=== PATIENT | male | born 2000 | race Caucasian/White ===

== ENCOUNTER 2024-12-18 23:16 | Inpatient (IN) | payer OTHER ==
[2024-12-18] MEDS ORDERED: ACETAMINOPHEN TAB 325 MG TAB PO PRN (23:43)
[2024-12-18] MEDS ORDERED: MAG HYDROX/AL HYDROX/SIMETH 355 ML BOTTLE PO PRN (23:43)
[2024-12-18] MEDS ORDERED: MAGNESIUM HYDROXIDE 2,400 MG/30 ML CUP PO PRN (23:43)
[2024-12-18] MEDS ORDERED: hydrOXYzine HCL 50 MG/ML 1 ML VIAL IM PRN (23:43)
--- NOTE | 2024-12-19 11:38 | P.HP ---
Psychiatric H&P - . H&P Date: 12/19/24 History & Physical: Allergies Allergy/AdvReac Type Severity Reaction Status Date / Time No Known Allergies Allergy Verified 12/18/24 23:42 Vital Signs Temp 98.6 F 12/19/24 06:51 Pulse 82 12/19/24 06:51 Resp 18 12/19/24 06:51 BP 137/83 12/19/24 06:51 Pulse Ox 99 12/19/24 06:51 FiO2 Intake & Output 12/18/24 12/19/24 12/19/24 18:59 06:59 18:59 Weight 70 kg Dictation was produced using [employer] dictation software. Please excuse any grammatical, word or spelling errors. IDENTIFYING DATA: Patient is a 24 years old male with past psychiatric history of bipolar disorder presenting from [facility] HPI: Per chart review, the patient came in as a transfer from [facility]. Per petition " the patient found running down the [address] without short, had no idea where he is, reported that he is talking to family through his mind, has a history of mental illness. Recently spent a week in [facility]. the patient presented to the ED for mood disorder with delusions, has poor insight and judgment." Per clinical certification "Patient was recently diagnosed with bipolar disorder, and has not been taking any medication for 1 week, patient was found wandering on the side of the street, [facility], stating he wanted to connect with his dad." Upon evaluation in the unit the patient states that he had a stress episode for the last few months, and states that he does not want to talk about it, states that he was at a facility about a week or 2 ago, and stayed for more than 7 days, pt he was ripped out of his life, and he was jumping into different topics. States that issues started after he opened up to his family, told them that he has too many knifes and unloaded pistol and shot gun, his family were concerned about him having those issues, states that he decided to leave the family house, went for a drive, and he felt hot, so he decide to walk on the freeway. 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 Appetite is okay, reported that he lost some weight. Patient admitted to flight of ideas, racing thoughts and increased in goal directed behavior, and poor sleep states that he was smoking too much weed every night, and states that he can finish the vape cartridge in one day. States that he just want to go back home and want to smoke again. He denied any current AVH, or paranoia. Patient admits to using cannabis daily too much, used to drink alcohol however nothing recently. Vape daily. Denied any other substance use recently. Reported that he tried mushroom a year ago. Per report there was some smell of a chemical in his car which patient was not aware of and he denied having any chemicals. PAST PSYCHIATRIC HISTORY: - Inpatient Hospitalizations: Per report patient was hospitalized at [facility] 1 week ago - Outpatient Care: none currently - Current Psychotropics: none currently, states that he just wants weed - Prior Psychotropics/Therapy: states Depakote and Seroquel sounds familiar, however he he states that "I am not going to take any mood stabilizer or antipsychotic" - Prior Psychiatric dx: bipolar disorder PMH: as per ER note ALLERGIES: as per EMR CHEMICAL DEPENDENCY HISTORY: as per HPI FAMILY PSYCHIATRIC/SUBSTANCE USE HISTORY: maternal grandmother has bipolar disorder, little sister has BPD SOCIAL HISTORY: Patient was born and raised in [place], he is single, has one son, 1 yo, 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 Denied any legal history. MENTAL STATUS EXAM: General Appearance: Patient appears to be stated age is alert, directable, and attempts to cooperate. Patient appears to have fair hygiene and grooming. Behavior: Patient is seated without any agitated behavior, however seems restless, stood up few times Speech: Patient's speech is fluent and nonpressured. Mood/Affect: Patient reports their mood is anxious, affect is congruent and constricted. Suicidality/Homicidality: Patient denies having any homicidal ideation intent or plan. Denies any suicidal ideations intent or plan Perceptions: Patient denies any visual hallucinations and denies any auditory hallucinations Though content/process: Illogical and nonsensical, paranoid at times, took time to read the medication consent form and decided not to sign it Memory and concentration: AOX3, grossly intact for the purposes of this session. Can spell "WORLD" backwards Judgment and insight: poor STRENGTHS/WEAKNESSES: strength is that patient is resilient. Weakness is that patient has poor judgment and is impulsive INTELLECT: average IMPRESSIONS: Patient is a 24 years old male with past psychiatric history of bipolar disorder presenting from [facility]. The patient has been having bizarre behavior, was found walking down the [address] without a shirt, he was recently discharged from [facility] about a week ago, has not been compliant with his medication. He lacks insight into his current mental illness, refused to try any mood stabilizer or antipsychotic medication. He has been smoking cannabis heavily lately and reported he just want to go home so he can smoke again. We discussed starting Abilify and trazodone to help with sleep as needed however patient refused to sign medication consent. Patient was encouraged to try the medication. Psychoeducation was provided, risk, benefit and side effect discussed. Lateral will be helpful. Bipolar disorder, current episode mixed, rule out with psychotic features Rule out due to heavy cannabis use Anxiety disorder, unspecified Cannabis use disorder, severe PLAN: -Patient is admitted under involuntary status to [facility] for stabilization of psychiatric symptoms and safety. Patient has not signed adult voluntary form and medication consent. A second certification was completed and along with petition will be filed for court. -Medications : Start Abilify 2 mg p.o. at bedtime Start trazodone 50 mg p.o. as needed at bedtime -Zyprexa, and hydroxyzine PRN for agitation/aggression -Collateral will be needed from the patient last hospitalization and from his parents -Patient was counselled on substance abuse and desired to cut back on use, however he does not see his cannabis use is a problem -Patient was informed of the risks, benefits and side effects of the medication and patient verbally consented to taking the medications. Patient refused to sign med consent form -Internal Medicine consult to perform medical evaluation and physical. -NRT - nicotine patch -SW on board for discharge planning. Encourage patient to participate in groups to work on coping skills. Will await deferral and court date. Collateral will be helpful 12/19/24 08:14 12/19/24 10:34 12/19/24 11:24
[2024-12-19 11:42] LABS: Basophils # (A) 0.03 10*3/uL (0.00-0.10); Basophils % (A) 0.3 %; Eosinophils # (A) 0.04 10*3/uL (0.04-0.35); Eosinophils % (A) 0.5 %; HCT 42.2 % (39.6-50.0); HGB 14.9 g/dL (13.0-17.0); Lymphocytes # (A) 1.83 10*3/uL (0.90-5.00); Lymphocytes % (A) 21.3 %; MCHC 35.3 g/dL (32.0-37.0); MCV 90.8 fL (80.0-97.0); Mean Platelet Volume 8.7 fL (9.5-12.2); Monocytes # (A) 0.75 10*3/uL (0.20-1.00); Monocytes % (A) 8.7 %; Neutrophils # (A) 5.94 10*3/uL (1.80-7.70); Platelet Count 289 10*3/uL (140-440); RBC 4.65 10*6/uL (4.40-5.60); RDW 11.8 % (11.5-14.5); WBC 8.61 10*3/uL (4.50-10.00)
[2024-12-19 11:57] LABS: ALT 17 U/L (4-49); AST 22 U/L (17-59); African American GFR (CKD) >90 (>60 ml/min/1.73 sqM); Albumin 4.6 g/dL (3.5-5.0); Alkaline Phosphatase 39 U/L (38-126); Anion Gap 9 mmol/L; Blood Urea Nitrogen 12 mg/dL (9-20); Calcium 9.3 mg/dL (8.4-10.2); Carbon Dioxide 25 mmol/L (22-30); Chloride 104 mmol/L (98-107); Glucose 101 mg/dL (74-99); Non-African American GFR(CKD) >90 (>60 ml/min/1.73 sqM); Potassium 4.3 mmol/L (3.5-5.1); Sodium 138 mmol/L (137-145); Total Bilirubin 0.5 mg/dL (0.2-1.3); Total Protein 7.4 g/dL (6.3-8.2)
[2024-12-19] MEDS: NICOTINE 14MG/24HR PATCH TRANSDERM SCH (12:34)
[2024-12-19] MEDS: ARIPiprazole 2 MG TAB PO SCH (22:22)
[2024-12-20] MEDS: DOCUSATE 100 MG CAP PO SCH (00:22)
[2024-12-20 02:17] LABS: Chol/HDL Ratio 3.77 Ratio
[2024-12-20] MEDS: OLANZapine 10 MG VIAL IM PRN (02:58)
[2024-12-20] MEDS: hydrOXYzine pamoate 25 MG CAP PO PRN (10:19)
[2024-12-20] MEDS: OLANZapine 5 MG TAB PO PRN (10:20)
--- NOTE | 2024-12-20 13:34 | P.PN ---
Progress Note - Text Progress Note Date: 12/20/24 Dictation was produced using [employer] dictation software. Please excuse any grammatical, word or spelling errors. Interval history: Patient was seen in the hallway and was directable and agreeable to speak with the junior underwriter in the hallway privately for psychiatric follow-up. The patient was in the hallway, arguing with staff, he has been very argumentative, demanding, knocking on the junior underwriter door multiple times since early in the morning, the junior underwriter redirected the patient multiple times, he is still fixated on discharge, leaving the hospital, requested to call 911. It was very hard to redirect the patient. He was hyperverbal, loud in the hallway, agitated and checking doors. Patient was encouraged to try as needed Vistaril and Zyprexa, he continued to refuse medication. The patient requested that the junior underwriter has to talk with him in front of the camera, states that he wanted to leave the hospital since he does not belong here. He states that " his dad did that to his mind and he is the one makes him hearing voices." States that he is planning to go [place] and does not want to interact with his father anymore. He denied any current suicidal, self-harm or homicidal thoughts or behavior. Denied any auditory or visual hallucination however patient seems to be very preoccupied. He is argumentative, demanding, disorganized. He can be agitated easily and having bizarre behavior. He has been refusing all of his psychotropic medication. He slept 3 hours overnight. Is been eating his meals. Per staff report the patient has been agitated and upset, he refused all of his psychotropic medication, the patient was caught in the female room, she had her shirt off, standing next to the bed, and patient was standing next to the window, patient was redirected as well as a female peer. Patient verbally acknowledge that he will keep his boundaries MENTAL STATUS EXAM: General Appearance: Patient appears to be stated age is alert, directable, and attempts to cooperate. Patient appears to have fair hygiene and grooming. Behavior: Patient is standing and has agitated behavior, argumentative, demanding, restless, he hold his fast together multiple time Speech: Patient's speech is fast in rate, pressured at time Mood/Affect: Patient reports their mood is anxious, affect is congruent and constricted. Suicidality/Homicidality: Patient denies having any homicidal ideation intent or plan. Denies any suicidal ideations intent or plan Perceptions: Patient denies any visual hallucinations and denies any auditory hallucinations Though content/process: Illogical and nonsensical, disorganized, paranoid at times, he is fixated on discharge. He lacks insight into his mental illness Memory and concentration: AOX3, grossly intact for the purposes of this session. Can spell "WORLD" backwards Judgment and insight: poor IMPRESSIONS: Bipolar disorder, current episode mixed, rule out with psychotic features Rule out due to heavy cannabis use Anxiety disorder, unspecified Cannabis use disorder, severe PLAN: -Patient is admitted under involuntary status to [facility]HU for stabilization of psychiatric symptoms and safety. Patient has not signed adult voluntary form and medication consent. A second certification was completed and along with petition will be filed for court. -Medications : (Has been refusing his psychotropic medication) Continue Abilify 2 mg p.o. at bedtime Continue trazodone 50 mg p.o. as needed at bedtime -Patient will have a room without a roommate to avoid any altercation -Zyprexa, and hydroxyzine PRN for agitation/aggression -Collateral will be needed from the patient last hospitalization and from his parents -Patient was counselled on substance abuse and desired to cut back on use, however he does not see his cannabis use is a problem -Patient was informed of the risks, benefits and side effects of the medication. Patient refused to sign med consent form - on board for discharge planning. Encourage patient to participate in groups to work on coping skills. Will await deferral and court date. Collateral will be helpful
[2024-12-20] MEDS: traZODone HCL 50 MG TAB PO PRN (21:12)
--- NOTE | 2024-12-21 02:05 | P.MDCNMH ---
History of Present Illness H&P Date: 12/20/24 24-year-old male no significant past medical history Patient admitted for mental health evaluation The patient currently denies any medical concerns , denies any fever, chills, cough, sore throat, chest pain , trouble breathing , nausea , vomiting, abd pain , changes in urinary or bowel habits. Patient denies heavy alcohol, admits to smoking and marijuana review of systems Pertinent positives as noted in HPI. All other systems were reviewed and are negative on exam Constitutional: No acute distress Eyes: Anicteric sclerae, moist conjunctiva, Pupils equal round reactive to light Lungs: Clear to auscultation Clear to percussion Normal respiratory effort, no accessory muscle use Cardiovascular: Heart regular in rate and rhythm, No murmurs, gallops, or rubs No peripheral edema Abdominal: Soft Nontender, no guarding, rebound or rigidity Abdomen moving with respiration Normoactive bowel sounds Extremities: No clubbing Pedal pulses intact and symmetrical Radial pulses intact and symmetrical No calf tenderness Psychiatric: Alert and oriented to person, place and time Neuro Muscles Strength 5/5 in all 4 extremities Sensation to light touch grossly present throughout Assessment and plan Acute psychosis and paranoid ideation Management per psych Blood work reviewed showing white count of 8 hemoglobin 14 BUN 12 creatinine 0.8 sodium 138 potassium 4.3 all of which unremarkable at this time Thank you for allowing us to participate in the care of this pleasant patient. Do not hesitate to contact us with questions. Someone can be reached from the [facility] hospitalist group all hours of the day at [phone] or via [employer]. Medications and Allergies Home Medications Medication Instructions Recorded Confirmed Type Divalproex ER [Depakote ER] 500 mg PO BID 12/19/24 12/19/24 History Paliperidone [Invega] 3 mg PO HS 12/19/24 12/19/24 History Allergies Allergy/AdvReac Type Severity Reaction Status Date / Time No Known Allergies Allergy Verified 12/19/24 11:31 Physical Exam Vitals: Vital Signs Temp Pulse Resp BP Pulse Ox 12/20/24 21:00 98.0 F 70 18 154/92 99 12/20/24 09:00 98.3 F 86 18 112/76 98 12/20/24 06:14 85 16 119/60 100 Intake and Output 12/20/24 12/20/24 12/21/24 14:59 22:59 06:59 Other: Weight 72.2 kg Cranial Nerve Examination - Cranial Nerves Cranial Nerve II- Optic: Intact Cranial Nerve III- Oculomotor: Intact Cranial Nerve IV- Trochlear: Intact Cranial Nerve V- Trigeminal: Intact Cranial Nerve - Abducens: Intact Cranial Nerve VII- Facial: Intact Cranial Nerve VIII- Auditory: Intact Cranial Nerve IX- Glossopharyngeal: Intact Cranial Nerve X- Vagus: Intact Cranial Nerve XI- Accessory: Intact Cranial Nerve XII- Hypoglossal: Intact Results CBC & Chem 7: 12/19/24 11:16 12/19/24 11:16 Labs: Abnormal Lab Results - Last 24 Hours (Table) 12/19/24 Range/Units 11:16 HDL Cholesterol 37.40 L (40.00-60.00) mg/dL
[2024-12-21] MEDS: haloperidoL 5 MG TAB PO STA (02:09)
[2024-12-21] MEDS ORDERED: OLANZapine 10 MG VIAL IM PRN (13:44)
[2024-12-21] MEDS ORDERED: hydrOXYzine HCL 50 MG/ML 1 ML VIAL IM PRN (13:44)
--- NOTE | 2024-12-21 13:49 | P.PN ---
Progress Note - Text Progress Note Date: 12/21/24 Interval History: Patient was seen wandering the hallways and was directable and agreeable to sp vernell with keno writer/runner in the hart, refusing to speak in his room. Patient displayed restlessness, disorganization in his behaviors and thoughts, stated that it is a sign that he is admitted to this hospital as he has a brother nearby in [place] and that his son is up north. There is an order for patient to stay in the South hallway given his frequent roaming into other patient's room. Patient states this is due to him being confused but he was agreeable with staying on this side of the unit. He expressed no concerns, states he is sleeping better despite staff noted him to sleep for only 2 hours overnight, seen pacing the halls and requiring as needed medications. He did display paranoid delusions, stating that there are cameras hidden in the diez on the unit. He states there is a house in [place] that he is trying to look at, states he has been hearing his father's voice. At this time patient denies any suicidal or homicidal ideations, intent or plan. Patient denies any visual hallucinations. Patient denies any side effects from the medications and has been compliant with meds. Mental Status Exam: General Appearance: Patient appears to be stated age is alert, directable, and c ooperative. He is disheveled with poor hygiene and grooming Behavior: There appears to be psychomotor restlessness Speech: Patient's speech is fluent and nonpressured. Mood/Affect: Mood is improving mildly, affect is congruent and constricted. Suicidality/Homicidality: Patient denies having any suicidal or homicidal ideation intent or plan. Perceptions: Patient denies any visual hallucinations however does report auditory hallucinations Though content/process: There is evidence of disorganization in thoughts and behaviors, paranoid delusions Memory and concentration: AOX3, grossly intact for the purposes of this session Judgment and insight: Poor Assessment Bipolar I disorder, current episode mixed with psychotic features Cannabis use disorder, severe Anxiety, unspecified Plan: -Patient continues to meet criteria for inpatient psychiatric admission for symptom stabilization and safety. Patient has not signed adult voluntary form and medication consent and was placed in patient's chart. -Medications: Increase Abilify to 10 mg daily for bipolar disorder, schedule trazodone 50 mg at bedtime for insomnia -When necessary Zyprexa and Hydroxyzine for agitation/aggression. -Labs: Grossly WNL -SW on board for discharge planning. Encouraged the patient to participate in milieu. Currently awaiting deferral with staff attorney and court date.
[2024-12-21] MEDS: ARIPiprazole 2 MG TAB PO SCH (15:16)
[2024-12-21] MEDS: OLANZapine 5 MG TAB PO PRN (17:37)
[2024-12-21] MEDS: NICOTINE 14MG/24HR PATCH TRANSDERM SCH (18:36)
[2024-12-22] MEDS: traZODone HCL 50 MG TAB PO SCH (00:42)
[2024-12-22] MEDS: hydrOXYzine pamoate 25 MG CAP PO PRN (00:42)
--- NOTE | 2024-12-22 12:03 | P.PN ---
Progress Note - Text Progress Note Date: 12/22/24 Interval History: Patient was seen wandering the hallways and was directable and agreeable to sp eak with adjusto writer operator in the hart. Patient was agreeable with uplifting the hart restrictions as long as he does not wander into other patients rooms to which he agreed. He states not taking the Abilify yesterday because it was not given to him he was unable to leave the hart. He did take the Abilify this morning. He continues to display disorganization, stating that appear on the unit who is female reminds him of his dad physically. He continues to display paranoia, feeling as though others are after him. He did not sleep well last night. At this time patient denies any suicidal or homicidal ideations, intent or plan. Patient denies any auditory, visual hallucinations. Patient denies any side effects from the medications. Mental Status Exam: General Appearance: Patient appears to be stated age is alert, directable, and cooperative. He has poor grooming and hygiene Behavior: Patient is calmly standing without any agitated behavior. Speech: Patient's speech is fluent and nonpressured. Mood/Affect: Mood is improving mildly, affect is congruent and constricted. Suicidality/Homicidality: Patient denies having any suicidal or homicidal ideation intent or plan. Perceptions: Patient denies any visual hallucinations and denies any auditory hallucinations Though content/process: There is evidence of paranoia, disorganization in thoughts Memory and concentration: AOX3, grossly intact for the purposes of this session Judgment and insight: Improving mildly Assessment Bipolar 1 disorder, current episode mixed with psychotic features Cannabis use disorder, severe Anxiety, unspecified Nicotine dependence Plan: -Patient continues to meet criteria for inpatient psychiatric admission for symptom stabilization and safety. Patient has not signed adult voluntary form and medication consent and was placed in patient's chart. -Medications: Continue Abilify 10 mg daily for bipolar disorder (encouraged patient to take this medication), increase trazodone to 100 mg at bedtime for i nsomnia -When necessary Zyprexa and hydroxyzine for agitation/aggression. -Labs: Grossly WNL -NRT - nicotine patch -SW on board for discharge planning. Encouraged the patient to participate in milieu. Currently awaiting deferral with corporate associate attorney and court date.
[2024-12-22] MEDS: NICOTINE GUM (POLACRILEX) 2 MG GUM BUCCAL PRN (13:52)
[2024-12-22] MEDS: traZODone HCL 100 MG TAB PO SCH (20:20)
--- NOTE | 2024-12-23 14:01 | P.PN ---
Progress Note - Text Progress Note Date: 12/23/24 Interval History: Patient was seen wandering the hallways and was directable and agreeable to sp eak with functional tester typewriters in the hart. Patient displayed bizarre behaviors as evidenced by him saying that he vomited his meds so that he is able to speak to me due to him thinking they were sleep agents. Patient later then states that he was having nausea from the medications that caused him to vomit. Patient was agreeable with trying a different medication. Patient appears to have connected with one of his peers on the unit who kept trying to intervene on the conversation between functional tester typewriters and patient, patient stating that this other peer is his guardian and she has his best interest at heart. Patient feels as though him being here is not infringement on his rights and that he should be discharged however the involuntary process was discussed with patient which includes him speaking to a wetlands conservation laborer to possibly sign a deferral and if not then the court will likely be next week. Patient's peer kept intervening stating that this was not right and that patient should have the option to sign himself in. Patient himself continues to display paranoia, distrustful at functional tester typewriters when writing down notes and not feeling safe here on the unit. At this time patient denies any suicidal or homicidal ideations, intent or plan. Patient denies any auditory, visual hallucinations. Mental Status Exam: General Appearance: Patient appears to be stated age is alert, directable, and cooperative. He has poor grooming and hygiene Behavior: Patient is calmly seated without any agitated behavior. Speech: Patient's speech is fluent and nonpressured. Mood/Affect: Mood is improving mildly, affect is congruent and constricted. Suicidality/Homicidality: Patient denies having any suicidal or homicidal ideation intent or plan. Perceptions: Patient denies any visual hallucinations and denies any auditory hallucinations Though content/process: There is evidence of paranoia, disorganization and bizarre behaviors. Memory and concentration: AOX3, grossly intact for the purposes of this session Judgment and insight: Improving mildly Assessment Bipolar 1 disorder, current episode mixed with psychotic features Cannabis use disorder, severe Anxiety, unspecified Nicotine dependence Plan: -Patient continues to meet criteria for inpatient psychiatric admission for symptom stabilization and safety. Patient has not signed adult voluntary form and medication consent and was placed in patient's chart. -Medications: Discontinue Abilify and start Risperdal 1 mg M-Tab at bedtime for psychosis, discontinue trazodone start Restoril 7.5 mg at bedtime for insomnia, start melatonin 10 mg at bedtime for insomnia -When necessary Zyprexa and hydroxyzine for agitation/aggression. -Labs: Grossly WNL -NRT - nicotine patch and gum as needed -SW on board for discharge planning. Encouraged the patient to participate in milieu. Currently awaiting deferral with ip attorney and court date.
[2024-12-23] MEDS: IBUPROFEN 600 MG TAB PO PRN (15:04)
[2024-12-23] MEDS: risperiDONE ODT 1 MG TAB PO SCH (20:29)
[2024-12-23] MEDS: TEMAZEPAM 7.5 MG CAP PO SCH (20:29)
[2024-12-23] MEDS: MELATONIN 5 MG TABLET PO SCH (20:29)
[2024-12-23] MEDS ORDERED: risperiDONE 1 MG TAB PO SCH (21:00)
[2024-12-23] MEDS ORDERED: RISPERIDONE PO SCH (21:00)
[2024-12-24] MEDS ORDERED: RISPERIDONE PO SCH (09:00)
--- NOTE | 2024-12-24 11:28 | P.PN ---
Progress Note - Text Progress Note Date: 12/24/24 Interval History: Patient was seen in the [facility] and was directable and agreeable to speak with justowriter operator in his room. Patient continues to exhibit paranoia with disorganization in his thoughts, expressing a microchip being in the wall in his room. Patient states that there are cameras here in his room and that we should use these cameras during the interview for court despite no cameras being present in the room. He expressed multiple complaints including the door stopper not stopping the door from slamming against the wall, not having a fan on at night, or outdoor recreational activities here, requesting a transfer to [facility]. Patient was fixated on being discharged so that he can see his son who is [place] with family. The legal process was discussed thoroughly with the patient however he continued to exhibit confusion regarding deferral versus court. He displays poor insight stating that he does not need medications and his diagnosis and treatment regimen was discussed in detail. At this time patient denies any suicidal or homicidal ideations, intent or plan. Patient denies any auditory, visual hallucinations. Patient reports sedation but has been compliant with meds. Mental Status Exam: General Appearance: Patient appears to be stated age is alert, directable, and cooperative. He has fair grooming and hygiene Behavior: Patient is calmly seated without any agitated behavior. Speech: Patient's speech is fluent and nonpressured. Mood/Affect: Mood is improving mildly, affect is congruent and constricted. Suicidality/Homicidality: Patient denies having any suicidal or homicidal ideation intent or plan. Perceptions: Patient denies any visual hallucinations and denies any auditory hallucinations Though content/process: There is evidence of paranoid delusions, disorganization and bizarre behaviors Memory and concentration: AOX3, grossly intact for the purposes of this session Judgment and insight: Improving mildly Assessment Bipolar 1 disorder, current episode mixed with psychotic features Cannabis use disorder, severe Anxiety, unspecified Nicotine dependence Plan: -Patient continues to meet criteria for inpatient psychiatric admission for symptom stabilization and safety. Patient has not signed adult voluntary form and medication consent and was placed in patient's chart. -Medications: Increase Risperdal M-Tab to 2 mg at bedtime for psychosis, increase Restoril to 15 mg at bedtime for insomnia, continue melatonin 10 mg at bedtime for insomnia -When necessary Zyprexa and hydroxyzine for agitation/aggression. -Labs: Grossly WNL -NRT - nicotine patch -SW on board for discharge planning. Encouraged the patient to participate in milieu. Currently awaiting deferral with corporate attorney and court date.
[2024-12-24] MEDS: TEMAZEPAM 15 MG CAP PO SCH (20:46)
[2024-12-24] MEDS: risperiDONE ODT 2 MG TAB PO SCH (20:46)
--- NOTE | 2024-12-25 12:58 | P.PN ---
Progress Note - Text Progress Note Date: 12/25/24 Interval History: Patient was seen wandering the hallways and was directable and agreeable to sp vernell with mortgage or loan underwriter in the office. Patient appeared more slowed, calm than previous encounter. He did not defer yesterday, stated that he needed to think about it however he did request to defer today. Staff documented 2 hours of sleep overnight however patient himself states that he has been sleeping more however is up pacing at times throughout the night. He reports some lingering sedation during the day however is adherent with his medications. Patient is disorganized in his thoughts however does appear less confused than yesterday. He denies paranoia, no longer feeling as though cameras are in the room listening in on him. He was fixated on discharge so that he can be with his son. At this time patient denies any suicidal or homicidal ideations, intent or plan. Patient denies any auditory, visual hallucinations and denies any paranoia. Patient has been compliant with meds. Mental Status Exam: General Appearance: Patient appears to be stated age is alert, directable, and cooperative. Behavior: Patient is calmly seated without any agitated behavior. Less irritable than yesterday Speech: Patient's speech is fluent and nonpressured. Mood/Affect: Mood is improving mildly, affect is congruent and constricted. Suicidality/Homicidality: Patient denies having any suicidal or homicidal ideation intent or plan. Perceptions: Patient denies any visual hallucinations and denies any auditory hallucinations Though content/process: There is evidence of disorganization in thoughts, paranoid delusions have lessened Memory and concentration: AOX3, grossly intact for the purposes of this session Judgment and insight: Improving mildly Assessment Bipolar 1 disorder, current episode mixed with psychotic features Cannabis use disorder, severe Anxiety, unspecified Nicotine dependence Plan: -Patient continues to meet criteria for inpatient psychiatric admission for symptom stabilization and safety. Patient has not signed adult voluntary form and medication consent and was placed in patient's chart. -Medications: Increase Risperdal M-Tab to 3 mg at bedtime for psychosis, continue Restoril 15 mg at bedtime for insomnia, melatonin 10 mg at bedtime for insomnia -When necessary Zyprexa and hydroxyzine for agitation/aggression. -Labs: Grossly WNL -NRT - nicotine patch -SW on board for discharge planning. Encouraged the patient to participate in milieu. Patient deferred today.
[2024-12-25] MEDS: risperiDONE ODT 1 MG TAB PO SCH (21:00)
--- NOTE | 2024-12-26 14:37 | P.PN ---
Subjective Progress Note Date: 12/26/24 Principal diagnosis: Bipolar manic Patient was seen wandering the hallways and was directable and agreeable to speak with communications writer in the office. He came up to me in the hart and offered to shake my hand even though it was obvious that my arms and hands are both full. He seemed a little bothered when I pointed out that I could not shake his hand right then.. Mental Status Exam: General Appearance: Patient appears to be stated age is alert, directable, and cooperative. Behavior: Patient had to get up and pace as he could not tolerate sitting still Speech: Patient's speech is fluent and somewhat pressured Mood/Affect: He denies suicidal or homicidal thoughts and was focused on maybe being discharged now Perceptions: Patient denies any visual hallucinations and denies any auditory hallucinations Though content/process: There is evidence of disorganization in thoughts, and paranoid delusions he had flight of ideas and was hard to discuss any solutions. Memory and concentration: AOX3, grossly intact for the purposes of this session Judgment and insight: Improving mildly Assessment Bipolar 1 disorder, current episode mixed with psychotic features Cannabis use disorder, severe Anxiety, unspecified Nicotine dependence I think tomorrow he will continue to be restless and will probably decide he needs to change to a different antipsychotic we could try Zyprexa but it will probably make him restless as well the problem with Geodon is that has to be taken with food and twice a day. Plan: -Patient continues to meet criteria for inpatient psychiatric admission for symptom stabilization and safety. Patient has not signed adult voluntary form and medication consent and was placed in patient's chart. -Medications: For now he wants to continue taking the Risperdal M-Tab to 3 mg at bedtime for psychosis, I talked him about antipsychotics that do not cause akathisia that would be Geodon but for now he did not want to change anything. Continue Restoril 15 mg at bedtime for insomnia, melatonin 10 mg at bedtime for insomnia -When necessary Zyprexa and hydroxyzine for agitation/aggression. -Labs: Grossly WNL -NRT - nicotine patch -SW on board for discharge planning. Encouraged the patient to participate in milieu. Patient deferred today. Objective - Vital Signs Vital signs: Vital Signs Temp 97.5 F L 12/25/24 21:00 Pulse 114 H 12/26/24 09:03 Resp 18 12/26/24 09:03 BP 116/65 12/26/24 09:03 Pulse Ox 97 12/26/24 09:03 FiO2 - Labs CBC & Chem 7: 12/19/24 11:16 12/19/24 11:16
--- NOTE | 2024-12-27 07:18 | P.PN ---
Subjective Progress Note Date: 12/27/24 Principal diagnosis: Bipolar manic Patient was seen wandering the hallways and was directable and agreeable to speak with video game script writer in the office. He says that he had a good night sleep but feels a little tired this morning he is on both Risperdal and Restoril at night but does not want to change to him he feels that the current combination is working well. Yesterday he was pacing in the office today he came in and sat down and sat calmly the whole time and denies any inner restlessness. Mental Status Exam: General Appearance: Patient appears to be stated age is alert, directable, and cooperative. Behavior: Patient calm and maybe a little slowed down Speech: Patient's speech is no longer pressured and soft spoken once or twice had to ask him to repeat himself because he was talking to softly Mood/Affect: He denies suicidal or homicidal thoughts and was focused on maybe being discharged now Perceptions: Patient denies any visual hallucinations and denies any auditory hallucinations Though content/process: There is evidence of disorganization in thoughts, and paranoid delusions he had flight of ideas and was hard to discuss any solutions. Memory and concentration: AOX3, grossly intact for the purposes of this session Judgment and insight: Improving mildly Assessment medicines seem to be working and the racing is slowing down. So were not going to change the risperidone since it no longer seems to be an issue with akathisia Bipolar 1 disorder, current episode mixed with psychotic features Cannabis use disorder, severe Anxiety, unspecified Nicotine dependence I think tomorrow he will continue to be restless and will probably decide he needs to change to a different antipsychotic we could try Zyprexa but it will probably make him restless as well the problem with Geodon is that has to be taken with food and twice a day. Plan: -Patient continues to meet criteria for inpatient psychiatric admission for symptom stabilization and safety. Patient has not signed adult voluntary form and medication consent and was placed in patient's chart. -Medications: For now he wants to continue taking the Risperdal M-Tab to 3 mg at bedtime for psychosis, I talked him about antipsychotics that do not cause akathisia that would be Geodon but for now he did not want to change anything. Continue Restoril 15 mg at bedtime for insomnia, melatonin 10 mg at bedtime for insomnia -When necessary Zyprexa and hydroxyzine for agitation/aggression. -Labs: Grossly WNL -NRT - nicotine patch -SW on board for discharge planning. Encouraged the patient to participate in addy arreola. Patient deferred today. Objective - Vital Signs Vital signs: Vital Signs Temp 97.7 F 12/26/24 21:00 Pulse 86 12/26/24 21:00 Resp 18 12/26/24 09:03 BP 129/83 12/26/24 21:00 Pulse Ox 98 12/26/24 21:00 FiO2 - Labs CBC & Chem 7: 12/19/24 11:16 12/19/24 11:16
[2024-12-27] MEDS: NICOTINE GUM (POLACRILEX) 2 MG GUM BUCCAL PRN (10:35)
--- NOTE | 2024-12-28 12:03 | P.PN ---
Progress Note - Text Progress Note Date: 12/28/24 Interval History: Patient was seen wandering the hallways and was directable and agreeable to sp vernell with commercial lines underwriter in the office. Patient appeared more calm, less disorganized than previous encounters. He has been sleeping well at night, adherent with his psychotropic medications. Patient was initially resistant with decreasing the Restoril as he reports feeling stable on the current cocktail of medications however the reasonings behind decreasing this medication as it is a controlled substance and is not a good medication long-term were discussed and patient was amenable to this. He states he plans on returning home with his parents to live in [facility]. He states his son celebrated his first birthday yesterday and he plans on spending time with him on vacation in [place] later this month. He denied any akathisia or restlessness, states that he was withdrawing from nicotine previously but gum is effective. At this time patient denies any suicidal or homicidal ideations, intent or plan. Patient denies any auditory, visual hallucinations and denies any paranoia or delusions. Patient denies any side effects from the medications and has been compliant with meds. Mental Status Exam: General Appearance: Patient appears to be stated age is alert, directable, and cooperative. Behavior: Patient is calmly seated without any agitated behavior. There is no evidence of psychomotor restlessness today Speech: Patient's speech is fluent and nonpressured. Mood/Affect: Mood is improving mildly, affect is congruent and constricted. Suicidality/Homicidality: Patient denies having any suicidal or homicidal ideation intent or plan. Perceptions: Patient denies any visual hallucinations and denies any auditory hallucinations Though content/process: Disorganization and paranoid delusions have both lessened Memory and concentration: AOX3, grossly intact for the purposes of this session Judgment and insight: Improving mildly Assessment Bipolar 1 disorder, current episode mixed with psychotic features Cannabis use disorder, severe Anxiety, unspecified Nicotine dependence Plan: -Patient continues to meet criteria for inpatient psychiatric admission for symptom stabilization and safety. Patient has not signed adult voluntary form and medication consent and was placed in patient's chart. -Medications: Decrease Restoril to 7.5 mg at bedtime for insomnia, continue Risperdal M-Tab 3 mg at bedtime for psychosis, melatonin 10 mg at bedtime for insomnia -When necessary Zyprexa and hydroxyzine for agitation/aggression. -Labs: Grossly WNL -NRT - nicotine patch and gum as needed -SW on board for discharge planning. Encouraged the patient to participate in milieu. Patient deferred on Saturday. Anticipate discharge home with parents tomorrow.
[2024-12-28] MEDS: TEMAZEPAM 7.5 MG CAP PO SCH (20:43)
[2024-12-29 09:43] VITALS: BP 107/72; PULSE 98; RESP 18; TEMP 97.4
--- NOTE | 2024-12-29 12:53 | P.DS ---
Providers Date of admission: 12/19/24 02:28 Expected date of discharge: 12/29/24 Attending physician: Miladys Ruvalcaba MD Consults: 12/18/24 23:43 Consult Physician Routine Consulting Provider: Fernando Hummel Consult Reason/Comments: History and Physical, New Admission Do you want consulting provider notified?: Yes Primary care physician: Physician Nonstaff - Discharge Diagnosis(es) (1) Bipolar 1 disorder, mixed Status: Acute Priority: High (2) Anxiety disorder, unspecified Status: Acute Priority: Medium (3) Nicotine dependence Status: Acute Priority: Low (4) Cannabis use disorder, severe, dependence Status: Acute Priority: Medium Hospital Course: Admission HPI: Admission note was completed by Dr. Olivares "Per chart review, the patient came in as a transfer from [facility]. Per petition " the patient found running down the [address] without short, had no idea where he is, reported that he is talking to family through his mind, has a history of mental illness. Recently spent a [facility] in [facility]. the patient presented to the ED for mood disorder with delusions, has poor insight and judgment." Per clinical certification "Patient was recently diagnosed with bipolar disorder, and has not been taking any medication for 1 week, patient was found wandering on the side of the street, [facility], stating he wanted to connect with his dad." Upon evaluation in the unit the patient states that he had a stress episode for the last few months, and states that he does not want to talk about it, states that he was at a facility about a week or 2 ago, and stayed for more than 7 days, pt he was ripped out of his life, and he was jumping into different topics. States that issues started after he opened up to his family, told them that he has too many knifes and unloaded pistol and shot gun, his family were concerned about him having those issues, states that he decided to leave the family house, went for a drive, and he felt hot, so he decide to walk on the freeway. 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 Appetite is okay, reported that he lost some weight. Patient admitted to flight of ideas, racing thoughts and increased in goal directed behavior, and poor sleep states that he was smoking too much weed every night, and states that he can finish the vape cartridge in one day. States that he just want to go back home and want to smoke again. He denied any current AVH, or paranoia. Patient admits to using cannabis daily too much, used to drink alcohol however nothing recently. Vape daily. Denied any other substance use recently. Reported that he tried mushroom a year ago. Per report there was some smell of a chemical in his car which patient was not aware of and he denied having any chemicals." Hospital course: Upon admission to the unit patient was admitted involuntarily on a petition and certificate and a second certificate was completed and faxed to the courts. Patient ended up signing a deferral with the consumer attorney and agreeing to treatment.. Patient got along well with other patients on the unit and followed unit protocol. Patient was compliant with the medications and denied any side effects throughout hospital course. Patient was started on Abilify however this was discontinued and he was started instead on Risperdal increased to 3 mg at bedtime for psychosis, Restoril increased to 15 mg at bedtime for insomnia however this was tapered down to 7.5 mg prior to discharge and patient was sent home on the limited prescription to finish the taper at home. Patient spoke of his stressors and engaged in therapy both group and individual. Patient was also seen by medical team for history and physical exam. Throughout the course of the hospitalization patient gradually improved with regards to mood, anxiety, sleep and returned back to their baseline level of functioning. On the day of discharge patient denied any suicidal or homicidal ideations intent or plan denied any auditory or visual hallucinations. The patient denied any access to guns or weapons. Patient denied any paranoia and did not endorse any delusions. Patient does not have a significant history of substance abuse and was counseled on abstaining from all substances including alcohol and marijuana. Patient was also counseled on the medications and need for regular compliance and was encouraged to follow-up with their outpatient appointment for mental health and also for primary care. Prior to discharge a family meeting will be arranged by social welfare clerk to answer any questions and ensure safety upon discharge including making sure that guns/weapons are either removed from the home or locked away. Patient to be discharged home with parents and will follow-up with [facility]. Mental status exam: General Appearance: Patient appears to be stated age is alert, pleasant, and cooperative. Patient is in no acute distress and has improved hygiene and grooming Behavior: Patient is calmly seated without any agitated behavior. Speech: Patient's speech is fluent and nonpressured. Mood/Affect: Patient reports their mood is "good", affect is congruent and euthymic. Suicidality/Homicidality: Patient denies having any suicidal or homicidal ideation intent or plan. Perceptions: Patient denies any auditory or visual hallucinations. Though content/process: There is no evidence of any delusional thought content and thought process is linear and goal-directed. More future oriented Memory and concentration: AOX3, grossly intact for the purposes of this session. Can spell "WORLD" backwards correctly. Judgment and insight: Fair Impression: Bipolar 1 disorder, current episode mixed with psychotic features Cannabis use disorder, severe Anxiety, unspecified Nicotine dependence Plan: -Continue with discharge today as patient has improved and stabilized psychiatri kinga and is not currently an imminent threat to themself and/or others. -Continue medications: Risperdal 3 mg at bedtime, melatonin 10 mg at bedtime, limited prescription given for Restoril 7.5 mg at bedtime for insomnia -Patient was counseled on the need for medication compliance and appropriate follow-up at mental health and also primary care for medical issues. Patient verbalized understanding and agreed. -Social work to help coordinate patients discharge today arrange for and conduct family meeting to ensure safety upon discharge and answer any questions/concerns. also to ensure safe home environment that guns/weapons are either removed from the home or locked away. Social work also to arrange for patients follow up appointments with [facility] for psychiatric care along with follow up with primary care provider. -Patient counseled on abstaining from recreational drugs and marijuana and alcohol. Was informed/educated on the adverse effects on their physical and mental health. Patient verbally agreed and understood. -Patient was instructed to return to the hospital or seek immediate medical care if their psychiatric or medical symptoms do worsen or reoccur. Abnormal Labs 12/19/24 12/19/24 11:16 11:16 MPV 8.7 L Glucose 101 H HDL Cholesterol 37.40 L Allergies Allergy/AdvReac Type Severity Reaction Status Date / Time No Known Allergies Allergy Verified 12/19/24 11:31 Vital Signs Temp 97.4 F L 12/29/24 09:00 Pulse 98 12/29/24 09:00 Resp 18 12/29/24 09:00 BP 107/72 12/29/24 09:00 Pulse Ox 99 12/29/24 09:00 FiO2 Patient Condition at Discharge: Stable Plan - Discharge Summary Discharge Rx Participant: Yes New Discharge Prescriptions: New risperiDONE [RisperDAL] 3 mg PO HS 30 Days #90 tablet risperiDONE ODT [RisperDAL M-TAB] 3 mg PO HS tab Nicotine 14Mg/24Hr Patch [Habitrol] 1 patch TRANSDERM DAILY patch Melatonin 10 mg PO HS #0 tab Nicotine Gum (Polacrilex) [Nicorette] 2 mg BUCCAL Q2HR PRN 30 Days #90 pieceofgum PRN Reason: Nicotine Cravings Temazepam [Restoril] 7.5 mg PO HS 3 Days #3 cap Discontinued Divalproex ER [Depakote ER] 500 mg PO BID Paliperidone [Invega] 3 mg PO HS Discharge Medication List Melatonin 10 mg PO HS #0 tab 12/29/24 [Rx] Nicotine 14Mg/24Hr Patch [Habitrol] 1 patch TRANSDERM DAILY patch 12/29/24 [Rx] Nicotine Gum (Polacrilex) [Nicorette] 2 mg BUCCAL Q2HR PRN 30 Days #90 pieceofgum 12/29/24 [Rx] Temazepam [Restoril] 7.5 mg PO HS 3 Days #3 cap 12/29/24 [Rx] risperiDONE ODT [RisperDAL M-TAB] 3 mg PO HS tab 12/29/24 [Rx] risperiDONE [RisperDAL] 3 mg PO HS 30 Days #90 tablet 12/29/24 [Rx] Follow up Appointment(s)/Referral(s): [facility] [Other] - 01/04/25 5:00 pm Pasha Nguyen [Other] - 1 Week Patient Instructions/Handouts: How to Stop Smoking (DC), Bipolar Disorder (DC), Anxiety (ED) Activity/Diet/Wound Care/Special Instructions: Avoid the use of street drugs and alcohol. Take all medications as prescribed. When you are in need of refills on your medications, please contact your medical provider and/or outpatient psychiatrist/provider to have this done. Please go to your scheduled outpatient appointment for aftercare treatment. If symptoms return or become worse, call the crisis line at and/or go to the nearest emergency room for evaluation. National Suicide Hotline [address] [facility] confidentiality statement: "The information contained in this communication, including attachments, is confidential, may be privileged, and is intended only for the use of the named recipient(s). Unauthorized use, disclosure, forwarding or copying is strictly prohibited and may be unlawful. If you have received this communication in error, please notify me IMMEDIATELY at the phone number or pager listed above. Discharge Disposition: HOME SELF-CARE
== END 2024-12-29 11:16 | disposition home or self-care (01) | DRG 885 ==
LOC: 3MHU 12-19 02:28
PROVIDERS: ADMIT Psychiatry & Neurology Psychiatry; ATTEND Psychiatry & Neurology Psychiatry
DX: F31.64 Bipolar disorder, current episode mixed, severe, with psychotic features (principal); F23 Brief psychotic disorder; F12.20 Cannabis dependence, uncomplicated; F60.0 Paranoid personality disorder; F41.9 Anxiety disorder, unspecified; G47.00 Insomnia, unspecified; F17.200 Nicotine dependence, unspecified, uncomplicated; Z79.899 Other long term (current) drug therapy; Z91.148 Patient's other noncompliance with medication regimen for other reason; Z28.310 Unvaccinated for COVID-19; Z28.21 Immunization not carried out because of patient refusal; Z71.51 Drug abuse counseling and surveillance of drug abuser; Z71.89 Other specified counseling
CPT/HCPCS: 80053; 80061; 83036; 84443; 85025